=== PATIENT | female | born 1965 | race Caucasian/White ===

== ENCOUNTER 2016-11-21 07:45 | Day surgery (SDC) | payer OTHER ==
[~2016-11-21] VITALS: Ht 154.9 cm; Wt 73.9 kg
[~2016-11-21 07:45] MED LIST: TYLENOL EXTRA500 MG PO
[2016-11-21 08:08] VITALS: BP 129/82
[2016-11-21] MEDS ORDERED: OXAYDO5 MG PO (13:04)
[2016-11-21] MEDS ORDERED: COLACE100 MG PO (13:04)
[2016-11-21 14:48] VITALS: BP 140/67
[2016-11-21] MEDS ORDERED: PROMETHAZINE HC25 M1 PO (15:25)
[2016-11-21 15:51] VITALS: BP 118/64
[2016-11-21 17:10] VITALS: BP 140/68
[2016-11-22 12:39] LABS: INTERNAL CONTROL VALID? YES
== END 2016-11-21 17:35 | disposition home or self-care (01) ==
LOC: SDC 07:45
PROVIDERS: Surgery
PROC: 0YU54JZ Supplement Right Inguinal Region with Synthetic Substitute, Percutaneous Endoscopic Approach (ICD-10-PCS; principal; 2016-11-21)
DX: K40.90 Unilateral inguinal hernia, without obstruction or gangrene, not specified as recurrent (principal); Z82.5 Family history of asthma and other chronic lower respiratory diseases; Z87.891 Personal history of nicotine dependence
CPT/HCPCS: 84703; C1727; C1781; J0330; J0690; J1100; J1170; J2250; J2405; J2710; J2765; J3010